=== PATIENT | female | born 1960 | race Asian ===

== ENCOUNTER 2022-10-21 14:41 | Emergency (ER) | payer BC ==
[~2022-10-21] VITALS: Ht 165.1 cm; Wt 63.5 kg
[2022-10-21 15:10] VITALS: BP 128/83
--- NOTE | 2022-10-21 15:30 | NUR ---
62/F WALKED IN C/O RIGHT ARM PAIN AND RIGHT RIB PAIN S/P FALL 2 DAYS AGO. DENIES HEAD TRAUMA OR INJURY. PMH: DENIES
--- NOTE | 2022-10-21 15:37 | NUR ---
62/F WALKED IN C/O RIGHT ARM PAIN AND RIGHT RIB PAIN S/P FALL 2 DAYS AGO. DENIES HEAD TRAUMA OR INJURY. AAO4, AMBULATORY, VITALS STABLE. PMH: DENIES
[2022-10-21] MEDS ORDERED: IBUP-1842 PO (17:48)
== END 2022-10-21 17:53 | disposition home or self-care (01) ==
LOC: MED 14:41
DX: S46.911A Strain of unspecified muscle, fascia and tendon at shoulder and upper arm level, right arm, initial encounter (principal); S20.211A Contusion of right front wall of thorax, initial encounter; W18.30XA Fall on same level, unspecified, initial encounter; Y93.89 Activity, other specified; Y92.89 Other specified places as the place of occurrence of the external cause; Y99.8 Other external cause status
CPT/HCPCS: 71101; 73030; 99284

== ENCOUNTER 2023-08-20 08:56 | Emergency (ER) | payer BC ==
[~2023-08-20] VITALS: Ht 165.1 cm; Wt 62.6 kg
[~2023-08-20 08:56] MED LIST: IBUP-1842 PO
[2023-08-20 09:03] VITALS: BP 117/75; PULSE 90; RESP 18; TEMP 98.6; O2SAT 99
[2023-08-20 09:32] LABS: APPEARANCE,URINE CLEAR (CLEAR); BILIRUBIN,URINE NEGATIVE (NEGATIVE); BLOOD, URINE NEGATIVE (NEGATIVE); COLOR,URINE YELLOW (YELLOW); LEUKOCYTE ESTERASE ,URINE 2+ (NEGATIVE); NITRITE, URINE NEGATIVE (NEGATIVE); PH,URINE 6.5 (5.0-9.0); PROTEIN,URINE NEGATIVE (NEGATIVE); UGLUCOSE NEGATIVE (NEGATIVE)
[2023-08-20 09:37] LABS: EOSINOPHILS % (AUTO) 1.1 % (0.0-4.0); HEMATOCRIT 40.2 % (36-48); HEMOGLOBIN 13.5 g/dL (12.0-16.0); LYMPHOCYTES # (AUTO) 0.9 K/uL (2.5-16.5); MEAN CORPUSCULAR HEMOGLOBIN 29 pg (27-31); MEAN CORPUSCULAR HGB CONC 34 g/dL (33-37); MEAN CORPUSCULAR VOLUME 86.6 fL (80-94); MONOCYTES # (AUTO) 0.2 K/uL (0.8-1.0); MONOCYTES % (AUTO) 5.7 % (1.7-9.3); NEUTROPHILS # (AUTO) 2.5 K/uL (1.8-7.7); NEUTROPHILS % (AUTO) 68.2 % (42.2-75.2); PLATELET COUNT (AUTO) 229 K/uL (140-450); RED BLOOD CELL COUNT(AUTO) 4.65 MIL/uL (4.20-5.40); RED CELL DISTRIBUTION WIDTH 13.9 % (11.6-13.7); WHITE BLOOD COUNT (AUTO) 3.6 K/uL (4.8-10.8)
[2023-08-20 09:52] LABS: ALBUMIN 4.1 g/dL (3.4-5.0); ANION GAP 12.8 (8-16); CALCIUM 9.8 mg/dL (8.5-10.1); CARBON DIOXIDE 28.3 mmol/L (21-32); CREATININE 0.9 mg/dL (0.6-1.3); POTASSIUM 4.1 mmol/L (3.5-5.1)
[2023-08-20 09:55] LABS: BACTERIA,URINE 1+ /HPF (None Seen); RBC,URINE 0-5 /HPF (0-5); SQUAMOUS EPITHELIAL CELL,UR 4-10 (MOD) /LPF (0-3 (FEW))
[2023-08-20] MEDS ORDERED: cephALEXin 500 MG CAP PO ONE (10:15)
[2023-08-20] MEDS ORDERED: CEPH-588 PO (10:18)
[2023-08-20] MEDS ORDERED: PYR100 PO (10:18)
[2023-08-20] MEDS ORDERED: ACET-10509 PO (10:18)
[2023-08-20 10:46] VITALS: BP 117/75; PULSE 90; RESP 18; TEMP 98.6
[2023-08-20 10:47] VITALS: O2SAT 99
== END 2023-08-20 10:29 | disposition home or self-care (01) ==
LOC: MED 08:56
DX: N39.0 Urinary tract infection, site not specified (principal); Z79.899 Other long term (current) drug therapy
CPT/HCPCS: 36415; 80053; 81001; 83690; 85025; 87086; 99283